=== PATIENT | male | born 1950 | race Caucasian/White ===

== ENCOUNTER 2016-11-30 13:00 | Emergency (ER) | payer OTHER ==
[2016-11-30] MEDS ORDERED: TYLENOL PO ONE (13:22)
[2016-11-30] MEDS ORDERED: NS 1,000 ML IV ONE (13:25)
--- NOTE | 2016-11-30 13:33 | PROVIDER DOCUMENTATION ---
HPI-General Adult <Binu Giron - Last Filed: 11/30/16 16:00> - General Source: patient - History of Present Illness -Gen Adult Nature of Presenting Problems: Pt is a 66 yom who came to the ED with a cc of SOB and shaking. Pt reports he was normal thirty minutes prior to the EMS arriving. Pt reports he wasn't able to catch his breath and is uncontrollably shaking. Location of Pain/Injury: reports: none Pain Radiation: reports: no radiation Quality of Pain: reports: none Severity: reports: mild Onset/Duration: reports: just prior to arrival Timing: reports: still present Context/Activities at Onset: reports: cold exposure Associated Symptoms: reports: fever/chills, shortness of breath Similar Symptoms Previously?: No Recently seen or treated by another doctor?: No <Orlando Reyesnzie - Last Filed: 11/30/16 17:44> - General Stated Complaint: SOB, Poss Fever Time Seen by Provider: 11/30/16 13:12 Allergies/Adverse Reactions: Patient Allergies Allergy/AdvReac Type Severity Reaction Status Date / Time No Known Allergies Allergy Verified 03/14/14 12:49 Home Medications: Aspirin 81 mg PO DAILY 03/14/14 Metoprolol Succinate E.r. [Toprol Xl] 75 mg PO DAILY 03/14/14 Nifedipine [Procardia Xl] 30 mg PO BID 03/14/14 Atorvastatin Calcium [Lipitor] 40 mg PO DAILY 03/12/16 Isosorbide Mononitrate E.r. [Imdur] 30 mg PO MO 03/12/16 Nitroglycerin [Nitrostat] 0.4 mg SL PRN PRN 03/12/16 Review of Systems - Adult - REVIEW OF SYSTEMS - ADULT Constitutional: reports: chills. denies: fever, fatique, night sweats Eyes: denies: blurred vision, double vision Ears, Nose, Mouth & Throat: reports: no symptoms reported Cardiovascular: denies: irregular heart rate, palpitations Respiratory: reports: shortness of breath. denies: hemoptysis, pleurisy, wheezing Gastrointestinal: denies: diarrhea, nausea, vomiting Genitourinary: reports: no symptoms reported Musculoskeletal: reports: no symptoms reported Integumentary: reports: no symptoms reported Neurological: reports: no symptoms reported Psychiatric: reports: no symptoms reported Endocrine: reports: no symptoms reported Hematologic/Lymphatic: reports: no symptoms reported Allergic/Immunologic: reports: no symptoms reported All Other Systems: Reviewed and Negative <Thuy Reyes - Last Filed: 11/30/16 17:44> Past History - Adult - PAST MEDICAL HISTORY-ADULT Review of Records: reports: Old Records Reviewed, Nursing Assessment Review Major Childhood Illnesses: reports: denies history Cardiovascular: reports: HTN Respiratory: reports: denies history Gastrointestinal: reports: denies history Obstetrical/Gynecological: reports: denies history Genitourinary: reports: denies history Musculoskeletal: reports: denies history Neurological: reports: denies history Endocrine/Immune: reports: denies history Other Conditions: reports: denies history <Thuy Reyes - Last Filed: 11/30/16 17:44> Physical Exam-General - PHYSICAL EXAM-ADULT Initial Vital Signs Reviewed: Yes - CONSTITUTIONAL General Appearance: alert, no apparent distress - EYES Eyes: PERRL/EOMI, pink conjunctivae - HEAD, EARS, NOSE, MOUTH & THROAT HENMT: normocephalic/atraumatic, moist mucous membranes, normal ENT inspection - NECK Neck: non-tender, full range of motion, normal inspection - RESPIRATORY Respiratory: chest non-tender, lungs clear, normal breath sounds - CARDIOVASCULAR Cardiovascular: normal peripheral pulses, regular rate, rhythm, no edema - GASTROINTESTINAL (ABDOMEN) Abdominal Exam: normal bowel sounds, non tender, soft - LYMPHATIC Lymphatic: no adenopathy - MUSCULOSKELETAL Back Exam: normal inspection, no CVA tenderness, no vertebral tenderness Extremity: normal range of motion, non-tender, normal gait - SKIN Integumentary: normal color, normal turgor, warm/dry - NEUROLOGIC Neurologic: grossly normal, no motor/sensory deficits - PSYCHIATRIC Psych/Mental Status: normal mood/affect, normal thought content, normal thought process, oriented x 3 <Thuy Reyes - Last Filed: 11/30/16 17:44> Progress - REASSESSMENT Reassessment #1 Time Reassessed: 16:00 Status: improving (Pt's symptoms resolved after IV Ativan, and he wants to go home. Denies any pain and absolutely no ETOH/drug abuse concerns. Pt is afebrile and no signs for infection. Will repeat Lactate acid.) <Binu Giron - Last Filed: 11/30/16 16:00> - PLAN OF CARE/RESULTS Progress/Plan/Lab Results: Vital Signs - 24 hr 11/30/16 13:29 Temperature 98.2 F Pulse Rate 117 H Respiratory 30 H Rate Blood Pressure 150/85 O2 Sat by Pulse 100 Oximetry Orders Category Date Time Status Cardiac Monitoring DIRECTED Care 11/30/16 13:23 Active Saline Loc NOW Care 11/30/16 13:23 Active CHEST-2 VIEWS [RAD] Stat Exams 11/30/16 13:23 Ordered BLOOD CULTURE [BLDCUL] Stat Lab 11/30/16 13:31 Ordered CBC WITH ELECTRONIC DIFF [HEME] Stat Lab 11/30/16 13:31 Ordered CK PROFILE [SP CHEM] Stat Lab 11/30/16 13:31 Ordered COMPREHENSIVE METABOLIC PANEL [CHEM] Stat Lab 11/30/16 13:31 Ordered LACTATE, PLASMA [CHEM] Stat Lab 11/30/16 13:31 Ordered MAGNESIUM [CHEM] Stat Lab 11/30/16 13:31 Ordered TROPONIN T Stat Lab 11/30/16 13:31 Ordered 0.9% Sodium Chloride Inj [Ns] 1,000 ml Med 11/30/16 13:25 Active IV 999 mls/hr Acetaminophen [Tylenol] Med 11/30/16 13:22 Discontinued 1,000 mg PO NOW ONE EKG [EKG] Stat Ther 11/30/16 13:23 Ordered - EKG 1 Time of EKG reading by physician:: 13:12 EKG Read and Signed by:: Binu Giron EKG Interpretation (*Must complete 3 of following elements*): Abnormal Rate: 88 (lateral infarct ) Rhythm: NSR <Thuy Reyes - Last Filed: 11/30/16 17:44> Departure <Binu Giron - Last Filed: 11/30/16 16:00> - Departure Time of Disposition Order: 17:44 Certified Medical Emergency: Emergent <Thuy Reyes - Last Filed: 11/30/16 17:44> - Departure DIAGNOSIS: Anxiety Disposition: HOME 01 Condition: Good Attestation - Scribe Verification/Attestation Scribe:: Thuy Reyes Acting as Scribe for:: Binu Giron Scribe documention review:: This chart was documented by a scribe and accurately reflects the service the provider performed and the decisions made by the provider. <Thuy Reyes - Last Filed: 11/30/16 17:44> Physician Attestation
[2016-11-30 13:39] LABS: MANUAL DIFF NEEDED? NO
[2016-11-30 13:42] LABS: BASO% 0.6 % (0.0-0.8); EOS# 0.44 X1000 (0.0-0.7); EOS% 6.9 % (0.0-10.0); HEMATOCRIT 50.3 % (42.0-52.0); HEMOGLOBIN 17.5 g/dL (14.0-18.0); LYMPH# 2.05 X1000 (1.2-3.4); LYMPH% 32.1 % (20.5-51.1); MCH 29.6 PG (27-31); MCHC 34.8 g/dL (33-37); MCV 85.1 FL (81-99); MONO# 0.77 X1000 (0.11-0.59); MONO% 12.1 % (1.7-9.3); NEUT% 48.3 % (42.2-75.2); PLT 156 X1000 (130-400); RBC 5.91 XMIL (4.7-6.1)
[2016-11-30 13:55] LABS: ALBUMIN 4.8 g/dL (3.5-5.0); CALCIUM 10.3 mg/dL (8.8-10.2); MAGNESIUM 2.1 mg/dL (1.5-2.7); POTASSIUM 3.3 mmol/L (3.5-5.1); TOTAL BILIRUBIN 0.64 mg/dL (0.20-1.00); TOTAL PROTEIN 8.4 g/dL (6.3-8.3)
[2016-11-30] MEDS ORDERED: ATIVAN IV ONE ×2 (13:57→13:58)
--- NOTE | 2016-11-30 14:04 | Diag Imaging Result Document ---
PROCEDURE NAME: CHEST-2 VIEWS - 11/30/2016 AP AND LATERAL RADIOGRAPH OF THE CHEST: COMPARISON: None available. FINDINGS: The lungs are grossly clear. There is no discrete pleural fluid collection or evidence of pneumothorax. The cardiomediastinal silhouette and upper airway are grossly unremarkable. IMPRESSION: No evidence of acute chest pathology.
[2016-11-30 15:04] LABS: URINE MICRO REVIEW NEEDED? NO; URINE SOURCE CLEAN CATCH
[2016-11-30 15:07] LABS: BILIRUBIN URINE NEGATIVE (NEGATIVE); BLOOD URINE SMALL (NEGATIVE); COLOR YELLOW; GLUCOSE URINE NEGATIVE (NEGATIVE); LEUKOCYTES URINE TRACE (NEGATIVE); NITRITE URINE NEGATIVE (NEGATIVE); PH URINE 6.5; PROTEIN URINE TRACE mg/dL (NEGATIVE); SP GRAVITY URINE 1.015; TURBIDITY URINE CLEAR (CLEAR); UROBILINOGEN URINE NORMAL (NORMAL)
[2016-11-30 15:08] LABS: UR EPITHELIAL CELLS <10 /HPF (<10); URINE BACTERIA NEGATIVE /HPF; URINE CULTURE NEEDED? YES; URINE WBC <10 /HPF (<10)
[2016-11-30 15:22] LABS: UR AMPHETAMINES QUAL NONE DETECTED (NONE DETECT); UR BARBITUATES QUAL NONE DETECTED (NONE DETECT); UR BENZODIAZEPIN QUAL NONE DETECTED (NONE DETECT); UR CANNABINOIDS QUAL NONE DETECTED (NONE DETECT); UR COCAINE QUAL NONE DETECTED (NONE DETECT); UR METHADONE QUAL NONE DETECTED (NONE DETECT); UR OPIATES QUAL NONE DETECTED (NONE DETECT); UR OXYCODONE QUAL NONE DETECTED (NONE DETECT); UR PCP QUAL NONE DETECTED (NONE DETECT)
[2016-11-30 17:55] VITALS: BP 155/77
--- NOTE | 2016-12-02 06:13 | EKG Report ---
Test Performed on : 11/30/2016 1:12:27 PM Test Reason : Chest Pain Blood Pressure : / mmHG Vent. Rate : 088 BPM Atrial Rate : 088 BPM P-R Int : 196 ms QRS Dur : 078 ms QT Int : 376 ms P-R-T Axes : 092 210 132 degrees QTc Int : 454 ms Suspect arm lead reversal, interpretation assumes no reversal Normal sinus rhythm. Lateral infarct , age undetermined Abnormal ECG When compared with ECG of 17-MAR-2014 06:18, Significant changes have occurred Unconfirmed Result
== END 2016-11-30 17:54 | disposition home or self-care (01) ==
LOC: EDBD → ED 13:00
DX: F41.9 Anxiety disorder, unspecified (principal); R94.31 Abnormal electrocardiogram [ECG] [EKG]; R06.02 Shortness of breath; R68.83 Chills (without fever); G25.89 Other specified extrapyramidal and movement disorders; I10 Essential (primary) hypertension; Z79.82 Long term (current) use of aspirin; Z79.899 Other long term (current) drug therapy
CPT/HCPCS: 71020; 80053; 81001; 82550; 83605; 83735; 84484; 85025; 87040; 87088; 87804; 93005; 96374; G0480; J2060; J7030